=== PATIENT | male | born 1945 ===

== ENCOUNTER 2017-04-10 23:38 | Inpatient (IN) | payer MEDICARE, BC ==
--- NOTE | 2017-04-11 01:11 | HP ---
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 He had immediate neck pain and took ~5 minutes to be able to get up, but denies loss of consciousness. He has taken ibuprofen with good control of his pain, but upon awakening the AM of 04/10 he had significant pain making him unable to turn his head and prompting him to present to [facility] for evaluation where he was released with the diagnosis of cervical strain based on Xray. The radiologist called the patient back after official read suspected a cervical FX and CT C-spine revealed an unstable C7 fracture for which Dr Vaughn Hall, neurosurgery, was consulted, reviewed the films and accepted the patient in transfer to [facility]. He denies and W/N/T, loss of bowel/bladder, or other acute symptoms. PMedHx BPH remote pelvic FX Ambulatory Orders Nursing to reconcile. 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; full code status FamHx: denies ROS: as above, otherwise reviewed and all were negative Constitutional: NAD, normally developed, well-nourished white male vitals: Vital Signs Temp 36.8 C 04/10/17 23:41 Pulse 70 04/10/17 23:41 Resp 16 04/10/17 23:41 BP 150/77 04/10/17 23:41 Pulse Ox 96 04/10/17 23:41 HEENM: atraumatic; sclera/conjunctiva: non-icteric/clear; hearing: clinically intact; oropharynx: clear, mucosa moist Neck: soft tissue: Mclean collar in place, not removed; thyroid: unable to assess Pulmonary: clear to auscultation bilaterally, good aeration, no accessory muscle use CV: RR/RR, normal S1S2, no carotid bruit, no jugular venous distention, 2+ B DP/ PT, no edema Abdominal: soft, non-distended, non-tender, no rebound/guarding/rigidity, normoactive bowel sounds, no hepatosplenomegaly or masses, no costovertebral angle tenderness Musculoskeletal: general: grossly intact, no overt deformities Integumental: normal appearance and texture of exposed skin Neurological motor 4+/5 x4 sensory crude touch: globally intact proprioception: globally intact Psychiatric orientation: AA&O to PPS affect: calm mood: pleasant eye contact: good content: reliable responses: timely insight: good Testing (Rich): reviewed ECG, personally reviewed: CT C-spine ([facility]), currently unavailable for review: IMPRESSION: C7 fracture , possibly unstable. Impression: 71M w/ traumatic unstable C7 FX DIAGNOSIS & PLAN Primary traumatic unstable C7 FX : remain in Mclean collar at all times : patient instructed to not attempt to turn/tilt head under any circumstance : pain control : Vaughn Hall MD neurosurgery consulted via [facility] ED, will evaluate in AM : NPO after midnight in anticipation of OR in AM : supportive care Secondary BPH : continue terazosin Admission Rational: inpatient for surgical management of unstable C7 FX; inappropriate for outpatient setting DVTp: SCDs Code Status: full HCP:
[2017-04-11] MEDS ORDERED: Acetaminophen TAB* 325 MG PO PRN (01:15)
[2017-04-11] MEDS ORDERED: LORazepam INJ* 2 MG/ML 1 ML VIAL IV PRN (01:16)
[2017-04-11] MEDS ORDERED: traMADol TAB* 50 MG PO PRN (01:16)
[2017-04-11] MEDS ORDERED: Ondansetron INJ* 2 MG/ML VIAL IV PRN (01:16)
[2017-04-11] MEDS ORDERED: HYDROmorphone* 1 MG/ML 1 ML SYR IV PRN (01:16)
[2017-04-11] MEDS ORDERED: NS 0.9% 1000 ML* 1,000 ML IV SCH (01:30)
[2017-04-11 01:33] LABS: Hematocrit 42 % (42-52); Mean Corpuscular HGB Conc 33 g/dl (31-36); Mean Corpuscular Hemoglobin 31 pg (27-31); Mean Corpuscular Volume 94 fL (80-94); Mean Platelet Volume 9 um3 (7.4-10.4); Red Blood Count 4.53 10^6/ul (4.0-5.4); Red Cell Distribution Width 14 % (10.5-15); White Blood Count 8.6 10^3/ul (3.5-10.8)
[2017-04-11 01:49] LABS: BUN/Creatinine Ratio 17.5 (8-20); Calcium 8.4 mg/dL (8.6-10.3); EGFR African American 92.1 (>60); EGFR Non-African American 71.6 (>60); Potassium 3.8 mmol/L (3.5-5.0)
[2017-04-11] MEDS: Omeprazole CAP* 20 MG PO SCH (06:22)
--- NOTE | 2017-04-11 07:33 | PN ---
Subjective Date of Service: 04/11/17 Interval History: Mild pain, doesn't need any analgesic. No subj numbness or weakness. No new c/ o. Objective Active Medications: Acetaminophen (Tylenol Tab*) 650 mg PO Q6H PRN PRN Reason: FEVER/PAIN Docusate Sodium (Colace Cap*) 200 mg PO BID LATOSHA Hydromorphone HCl (Dilaudid Iv*) 0.5 mg IV Q2H PRN PRN Reason: PAIN Potassium Chloride/Dextrose (D5w 1/2 Ns Kcl 20 Meq 1000 Ml*) 1,000 mls @ 100 mls/hr IV PER RATE LATOSHA Lorazepam (Ativan Inj*) 0.5 mg IV BEDTIME PRN PRN Reason: SLEEP Last Admin: 04/11/17 01:53 Dose: 0.5 mg Omeprazole (Prilosec Cap*) 20 mg PO DAILY@0600 LATOSHA Last Admin: 04/11/17 06:22 Dose: 20 mg Ondansetron HCl (Zofran Inj*) 4 mg IV Q6H PRN PRN Reason: NAUSEA Tramadol HCl (Ultram*) 50 mg PO Q6H PRN PRN Reason: PAIN Vital Signs 04/10/17 04/11/17 04/11/17 23:41 00:03 01:00 Temperature 98.2 F Pulse Rate 70 68 66 Respiratory 16 19 12 Rate Blood Pressure 150/77 140/74 (mmHg) O2 Sat by Pulse 96 96 96 Oximetry 04/11/17 04/11/17 04/11/17 01:53 02:00 03:00 Temperature Pulse Rate 67 70 Respiratory 14 13 15 Rate Blood Pressure 142/69 124/68 (mmHg) O2 Sat by Pulse 95 94 Oximetry 04/11/17 04/11/17 04/11/17 04:00 05:00 05:18 Temperature 98.9 F Pulse Rate 68 65 Respiratory 14 14 Rate Blood Pressure 119/68 131/63 (mmHg) O2 Sat by Pulse 94 94 Oximetry 04/11/17 04/11/17 06:00 07:25 Temperature 98.8 F Pulse Rate 65 Respiratory 14 Rate Blood Pressure 121/68 (mmHg) O2 Sat by Pulse 94 Oximetry Oxygen Devices in Use Now: None Appearance: Alert, partly up in ICU bed. Cervical collar in place. In fair spirits. Looks comfortable. Eyes: No Scleral Icterus Neck: NL Appearance and Movements; NL JVP, No Thyroid Enlargement, Masses Respiratory: Symmetrical Chest Expansion and Respiratory Effort, Clear to Auscultation, Clear to Percussion Cardiovascular: NL Sounds; No Murmurs; No JVD, RRR, No Edema, - Extremities: No Edema, No Clubbing, Cyanosis, - Skin: No Rash or Ulcers, No Nodules or Sclerosis, - Neurological: Alert and Oriented x 3, NL Sensation - Moves all limbs well. Result Diagrams: 04/11/17 00:10 04/11/17 00:10 Microbiology and Other Data: Microbiology 04/11/17 00:10 Nasal Screen MRSA (PCR)(CHET) - Final Nasal Mrsa Negative Assess/Plan/Problems-Billing Assessment: - Patient Problems (1) Cervical spine fracture Current Visit: Yes Status: Acute Code(s): S12.9XXA - FRACTURE OF NECK, UNSPECIFIED, INITIAL ENCOUNTER SNOMED Code(s): 537045196 Comment: Management per Dr. Hall. (2) BPH (benign prostatic hyperplasia) Current Visit: Yes Status: Acute Code(s): N40.0 - BENIGN PROSTATIC HYPERPLASIA WITHOUT LOWER URINRY TRACT SYMP SNOMED Code(s): 181284896 Comment: Pt states he takes 10 mg terazosin hs. Same ordered.
--- NOTE | 2017-04-11 07:39 | RAD ---
INDICATION: Preoperative evaluation. COMPARISON: There are no prior studies available for comparison. TECHNIQUE: 2 portable films of the chest were obtained. FINDINGS: Cardiac and mediastinal contours appear to be within normal limits. The lungs are clear. No pleural effusion is seen. IMPRESSION: NO EVIDENCE FOR ACUTE DISEASE.
[2017-04-11] MEDS: D5W 1/2 NS KCl 20 Meq 1000 ML* 1,000 ML IV SCH ×2 (07:42→18:15)
--- NOTE | 2017-04-11 07:46 | CONSULT ---
Adult Trauma - HPI Summary HPI Summary: CC: traumatic C7 FX HPI: Mr Carter is a pleasant 71 M crum who was unloading 50lb hay jessy from a barn loft approximately 12' in the air when one fell striking him in the back of the neck and knocking him to the ground about 2 days ago. He had immediate neck pain and took ~5 minutes to be able to get up, but denies loss of consciousness. He has taken ibuprofen with good control of his pain, but upon awakening the AM of 04/10 he had significant pain making him unable to turn his head and prompting him to present to [facility] ED for evaluation where he was released with the diagnosis of cervical strain based on Xray. The radiologist called the patient back after official read suspected a cervical FX and CT C- spine revealed an C7 fracture . He denies and W/N/T, loss of bowel/bladder, or other acute symptoms. PMedHx BPH Remote pelvic FX Ambulatory Orders Nursing to reconcile. Allergies: NKDA Adverse reactions: Morphine causes significant hypotension PSurgHx R knee arthroscopy SocHx: no tobacco, alcohol, or recreational drugs; lives with his , 2 adult children live out of the area; retired from [email or web address] now; full code status FamHx: denies ROS: as above, otherwise reviewed and all were negative Constitutional: NAD, normally developed, well-nourished white male - History of Current Complaint Hx Obtained From: Patient Mechanism of Injury: Blunt Trauma Force: High Onset of Pain: Hours Onset Severity: Moderate Pain Intensity: 2 Pain Scale Used: 0-10 Numeric Location: Neck Aggravating Factor(s): Movement - Additional Pertinent History Oxygen Devices Used Prior to Hospitalization: None - Allergy/Home Medications Allergies/Adverse Reactions: Allergies Allergy/AdvReac Type Severity Reaction Status Date / Time Morphine Allergy sever Verified 04/11/17 04:12 hypotension Physical Exam - Physical Exam General Appearance: mild distress Head Injury: no evidence of injury ENT Exam: hearing grossly normal, no evidence of ENT injury, no dental injury Neck Exam: limited range of motion, muscle spasm, paraspinous muscle tender, spinous processes tender, tender midline Cardiovascular/Respiratory: regular rate, rhythm Gastrointestinal/Abdominal: normal bowel sounds Back Exam: normal inspection Extremity Exam: no evidence of injury Neurologic: performance engineer II-XII nml as tested, no motor/sensory deficits, oriented x 3, abnormal performance engineer II-XII - Sudhakar Coma Score Best Eye Response (Sudhakar): (4) open spontaneously Best Verbal Response (Sudhakar): (5) oriented Best Motor Response (Sudhakar): (6) obeys commands Lab Results - Lab Results Lab Results: 04/11/17 04/11/17 04/11/17 00:00 00:10 00:10 WBC 8.6 RBC 4.53 Hgb 14.0 Hct 42 MCV 94 MCH 31 MCHC 33 RDW 14 Plt Count 147 L MPV 9 Neut % (Auto) 66.1 Lymph % (Auto) 18.8 L Simpson % (Auto) 11.3 H Eos % (Auto) 3.1 Baso % (Auto) 0.7 Absolute Neuts (auto) 5.7 Absolute Lymphs (auto) 1.6 Absolute Monos (auto) 1.0 H Absolute Eos (auto) 0.3 Absolute Basos (auto) 0.1 Absolute Nucleated RBC 0 Nucleated RBC % 0 INR (Anticoag Therapy) 1.02 APTT 31.0 Sodium 140 Potassium 3.8 Chloride 112 H Carbon Dioxide 24 Anion Gap 4 BUN 18 Creatinine 1.03 Est GFR ( Amer) 92.1 Est GFR (Non-Af Amer) 71.6 BUN/Creatinine Ratio 17.5 Glucose [address] showed C6/7 facet jump on right side and Ct facet incomplete fracture on left side, Cervical spondylosis with C6/7 autofusion from degenerative change Impression and Recommendations - Impression and Recommendations Impression and Recommendations: DIAGNOSIS & PLAN Primary 71M, Traumatic C6/7 facet jump on right side and C7 facet incomplete fracture on left side, Cervical spondylosis with C6/7 autofusion from degenerative change Remain in [facility] at all times pain control MRI C spine to rule out ligment injury If no ligment injury, he could be potentially watched conservatively with collar since he already has autofusion at C6/7, which is potential surgical solution for C6/7 facet jump and C7 facture. If his neck pain getting worse, hand and leg numbness and weakness, he need anterior cervical fusion at C6/7. Supportive care Discussed with patient and please call for any questions
[2017-04-11] MEDS: Docusate CAP* 100 MG PO SCH ×2 (09:09→20:44)
--- NOTE | 2017-04-11 11:44 | RAD ---
HISTORY: C7 jumped facets and facet fracture, trauma COMPARISONS: CT dated April 10, 2017 TECHNIQUE: The following sequences were obtained of the cervical spine: Sagittal T1- and T2-weighted images, sagittal STIR images, axial T2 and gradient echo images. FINDINGS: BRAIN AND SPINAL CORD: The visualized spinal cord is normal in caliber, position, and signal intensity. The visualized portion of the brain is unremarkable. The cerebellar tonsils are normal in position. There is no appreciable epidural fluid collection to suggest epidural hematoma. ALIGNMENT: Again noted is a perched facet on the left at C6-C7. VERTEBRAL BODIES: There is multilevel anterolateral marginal osteophyte formation. There is edema within the left hemivertebral body and lateral mass of C7 with the nondisplaced fracture involving the articular facet, noted on the previous CT examination. JOINTS: As noted above, there is a perched facet on the left at C7. There is uncovertebral and facet osteoarthritis MUSCULATURE: Unremarkable INTERVERTEBRAL DISCS: There is diffuse loss of intervertebral disc height and T2 signal throughout the spine. AXIAL IMAGES: C2-C3: There is bilateral uncovertebral and facet hypertrophy. There is no significant neural foraminal narrowing or central canal stenosis. C3-C4: There is no disc herniation, spinal stenosis, or neuroforaminal narrowing. C4-C5: There is a broad-based disc osteophyte convex bilateral uncovertebral and facet hypertrophy. There is severe bilateral neural foraminal narrowing. There is mild narrowing of central canal. C5-C6: There is bilateral uncovertebral facet hypertrophy with a small central disc protrusion measuring 0.3 cm in depth. There is mild narrowing of the central canal. There is moderate bilateral neural foraminal narrowing. C6-C7: There is bilateral uncovertebral and facet hypertrophy. There is moderate to severe bilateral neural foraminal narrowing. There is no significant osseous central canal stenosis. C7-T1: There is bilateral uncovertebral and facet hypertrophy. There is no significant neural foraminal narrowing calcinosis. SOFT TISSUES: There is extensive edema posterior paraspinal soft tissues involving the interspinous ligament. There is a small defect of the ligamentum flavum at C6-C7 OTHER: None. IMPRESSION: 1. PERCHED FACET ON THE RIGHT AT C6-C7 WITH EDEMA OF THE C7 VERTEBRAL BODY AND POSTERIOR ELEMENTS CONSISTENT WITH A FRACTURE NOTED ON THE PREVIOUS CT EXAMINATION. 2. THERE IS NO APPRECIABLE EPIDURAL HEMATOMA OR CORD INJURY. 3. THERE IS A SMALL DEFECT OF THE LIGAMENT OF FLAVUM WHICH MAY INDICATE A LIGAMENTOUS INJURY. 4. THERE IS EXTENSIVE EDEMA OF THE INTERSPINOUS LIGAMENT AND PARASPINAL SOFT TISSUES, ALSO CONSISTENT WITH LIGAMENTOUS INJURY. 5. DEGENERATIVE DISC DISEASE AND OSTEOARTHRITIS. 6. THIS RESULTS IN MILD NARROWING OF THE CENTRAL CANAL AT C4-C5 AND C5-C6
[2017-04-11] MEDS ORDERED: Terazosin CAP* 5 MG PO SCH (21:00)
[2017-04-12] MEDS: D5W 1/2 NS KCl 20 Meq 1000 ML* 1,000 ML IV SCH (04:06)
[2017-04-12] MEDS: Omeprazole CAP* 20 MG PO SCH (05:49)
[2017-04-12] MEDS: Docusate CAP* 100 MG PO SCH (07:43)
--- NOTE | 2017-04-12 09:51 | PN ---
Progress Note - Progress Note Date of Service: 04/12/17 Note: doing well , no much pain with collar, oob and ambulation, tolerating diet AAOX 3 CN 2-12 intact motor 5/6 BUE and BLE sensation intact MRI C spine to no significant ligament or disk injury A/P 71M, Traumatic C6/7 facet perched on right side and C7 facet incomplete fracture on left side thru the pedicle, with cervical spondylosis with C6/7 autofusion from degenerative change Pain controlled well with C-collar Plan: Remain in [facility] at all times for 3 month clinic followup and X ray He could be managed conservatively with C collar since he already has autofusion at C6/7, which is the surgical solution for C6/7 facet jump and C7 facture. If his neck pain getting worse, or develops hand and leg numbness and weakness, he need anterior cervical fusion at C6/7. Supportive care Discussed with patient and please call for any questions
[2017-04-12 12:01] VITALS: BP 140/76
--- NOTE | 2017-04-12 12:45 | DCNOTE ---
Subjective Date of Service: 04/12/17 Interval History: Little pain. No neuro sx's. No new c/o, anxious to go home. Objective Active Medications: Acetaminophen (Tylenol Tab*) 650 mg PO Q6H PRN PRN Reason: FEVER/PAIN Docusate Sodium (Colace Cap*) 200 mg PO DAILY LATOSHA Hydromorphone HCl (Dilaudid Iv*) 0.5 mg IV Q2H PRN PRN Reason: PAIN Lorazepam (Ativan Inj*) 0.5 mg IV BEDTIME PRN PRN Reason: SLEEP Last Admin: 04/11/17 01:53 Dose: 0.5 mg Ondansetron HCl (Zofran Inj*) 4 mg IV Q6H PRN PRN Reason: NAUSEA Terazosin HCl (Hytrin Cap*) 10 mg PO BEDTIME LATOSHA Last Admin: 04/11/17 20:44 Dose: 10 mg Tramadol HCl (Ultram*) 50 mg PO Q6H PRN PRN Reason: PAIN Vital Signs 04/11/17 04/11/17 04/11/17 13:00 14:00 15:00 Temperature Pulse Rate 73 69 74 Respiratory 18 16 20 Rate Blood Pressure 143/97 138/71 140/88 (mmHg) O2 Sat by Pulse 97 96 94 Oximetry 04/11/17 04/11/17 04/11/17 16:44 16:45 17:25 Temperature 97.7 F 97.7 F Pulse Rate 69 69 Respiratory 16 16 16 Rate Blood Pressure 146/68 146/68 (mmHg) O2 Sat by Pulse 98 98 Oximetry 04/11/17 04/11/17 04/11/17 19:05 19:46 23:41 Temperature 99.2 F 98.1 F Pulse Rate 69 73 Respiratory 18 18 20 Rate Blood Pressure 115/60 109/61 (mmHg) O2 Sat by Pulse 96 96 Oximetry 04/12/17 04/12/17 04/12/17 03:24 07:33 08:00 Temperature 98.4 F 98.2 F Pulse Rate 71 77 Respiratory 16 20 16 Rate Blood Pressure 115/61 136/66 (mmHg) O2 Sat by Pulse 95 96 Oximetry 04/12/17 11:51 Temperature 98.0 F Pulse Rate 71 Respiratory 16 Rate Blood Pressure 140/76 (mmHg) O2 Sat by Pulse 96 Oximetry Oxygen Devices in Use Now: None Appearance: Alert, sitting up in bed. In good spirits. Cervical collar in place. Looks comfortable. Eyes: No Scleral Icterus Extremities: No Edema, No Clubbing, Cyanosis, - Skin: No Rash or Ulcers, No Nodules or Sclerosis, - Neurological: Alert and Oriented x 3, NL Sensation, - - Moves all limbs well. Result Diagrams: 04/11/17 00:10 04/11/17 00:10 Microbiology and Other Data: Microbiology 04/11/17 00:10 Nasal Screen MRSA (PCR)(CHET) - Final Nasal Mrsa Negative Assess/Plan/Problems-Billing Assessment: - Patient Problems (1) Cervical spine fracture Current Visit: Yes Status: Acute Code(s): S12.9XXA - FRACTURE OF NECK, UNSPECIFIED, INITIAL ENCOUNTER SNOMED Code(s): 793626149 Comment: Discharge now. Discussed with Dr. Hall ([phone]). Fup Dr. Fernandes. (2) BPH (benign prostatic hyperplasia) Current Visit: Yes Status: Acute Code(s): N40.0 - BENIGN PROSTATIC HYPERPLASIA WITHOUT LOWER URINRY TRACT SYMP SNOMED Code(s): 155356719 Comment: Continue home dose of terazosin hs. Status and Disposition: Discharge now. Fup Dr. Fernandes.
--- NOTE | 2017-04-12 12:45 | PN ---
Progress Note - Progress Note Date of Service: 04/12/17 Note: Time spent on discharge 45 minutes.
--- NOTE | 2017-04-12 13:54 | DS ---
CC: Dr. Fernandes; Dr. Abdi Ortiz DISCHARGE SUMMARY: DATE OF ADMISSION: DATE OF DISCHARGE: 04/12/17 HOSPITAL COURSE: This 71-year-old man was admitted with a traumatic C7 fracture as on a C6-C7 facet jump, a bale of hay probably weighing 50 pounds or more fell from a barn loft 12 feet in the air hi tting on the back of the neck knocking him to the ground 2 days before admission. He had immediate neck pain and took 5 minutes to get up. He did not have loss of consciousness. On awakening in the morning of admission, 04/10/17, he had more pain and was unable to turn his head. He went to the [facility] ER. X-rays were negative and showed cervical strain. On review of the CT scan later, a C7 fracture was detected and the patient was called back, he was sent here. An MRI was done that showe d a C6-7 facet jump and an incomplete fracture of the C7 vertebral body. He was put in a [place] J-collar. He did well in the hospital. Dr. Chaidez consulted on him and saw him every day. His pain was well controlled basically with acetaminophen after the collar had been in place. He was instructed very carefully to never take the collar off, to have it on 24 hours a day regardle ss of other activities. He will see Dr. Fernandes in 1 month. He was advised also not to tilt, bend, or turn his head until he saw Dr. Fernandes even with the collar on. FINAL DIAGNOSES: 1. Cervical 7 vertebral fracture. 2. Benign prostatic hypertrophy. DISCHARGE MEDICATIONS: 1. Acetaminophen 650 mg every 6 hours p.r.n. 2. Terazosin 10 mg h.s. [id number]/[facility] #: [id number]
[2017-04-13] MEDS ORDERED: Docusate CAP* 100 MG PO SCH (09:00)
== END 2017-04-12 14:40 | disposition home or self-care (01) | DRG 552 ==
LOC: ICU 23:40 → SSU 04-11 16:47
PROVIDERS: ADMIT Hospitalist; ATTEND Internal Medicine
DX: S12.601A Unspecified nondisplaced fracture of seventh cervical vertebra, initial encounter for closed fracture (principal); N40.0 Benign prostatic hyperplasia without lower urinary tract symptoms; W20.1XXA Struck by object due to collapse of building, initial encounter; Y92.71 Barn as the place of occurrence of the external cause; Z79.899 Other long term (current) drug therapy; Z88.6 Allergy status to analgesic agent
CPT/HCPCS: 36415; 71010; 72141; 80048; 85025; 85610; 85730; 87641; 93005; A9270-GY; J2060